=== PATIENT | female | born 1950 | race African-American/Black ===

== ENCOUNTER 2018-04-26 10:12 | Inpatient (IN) | payer BC ==
[~2018-04-26] VITALS: Ht 165.1 cm; Wt 62.1 kg
[2018-04-26] MEDS ORDERED: SODIUM CHLORIDE 0.9% 1,000 ML IV ONE (11:55)
[2018-04-26 12:38] LABS: BASOPHILS % 0.2 % (0.0-2.0); EOSINOPHILS % 1.2 % (0.0-5.0); LYMPHOCYTES % 14.4 % (20.0-50.0); MEAN CORPUSCULAR HEMOGLOBIN 20.9 pg (28.0-32.0); MEAN CORPUSCULAR VOLUME 69.6 fL (81.0-99.0); MEAN PLATELET VOLUME 9.3 fl (7.4-10.4); MONOCYTES % 6.4 % (2.0-8.0); NEUTROPHILS % 77.8 % (40.0-76.0); PLATELET 324 x1000/uL (130-400); RED BLOOD CELL COUNT 1.78 mill/uL (4.2-5.4); RED CELL DISTRIBUTION WIDTH 24.7 % (11.6-14.6)
[2018-04-26 12:43] LABS: CHLORIDE 104 mEq/L (98-107)
[2018-04-26 12:46] LABS: HEMATOCRIT. 12.4 % (36.0-48.0); HEMOGLOBIN. 3.7 g/dL (12.0-16.0)
[2018-04-26 12:47] LABS: INR 1.1; PARTIAL THROMBOPLASTIN TIME 21.5 sec (23.4-31.0); PROTHROMBIN TIME 11.5 sec (9.1-11.1)
[2018-04-26 12:58] LABS: PLATELET ESTIMATE NORMAL
[2018-04-26] MEDS ORDERED: ONDANSETRON HCL 4MG/2ML INJ IV PRN (17:45)
[2018-04-26 19:54] LABS: CLARITY URINE CLOUDY (CLEAR); COLOR URINE YELLOW (YELLOW); KETONES URINE NEGATIVE (NEGATIVE); LEUKOCYTE ESTERASE URINE 2+ (NEGATIVE); NITRITE URINE NEGATIVE (NEGATIVE); OCCULT BLOOD URINE TRACE (NEGATIVE); PROTEIN URINE 2+ (NEGATIVE); SPECIFIC GRAVITY URINE 1.009 (1.005-1.030); UROBILINOGEN URINE 0.2 E.U./dL (0.2-1.0)
[2018-04-26 20:00] VITALS: BP 121/76
[2018-04-26] MEDS ORDERED: HYDROCODONE/ACETAMINOPHEN 5/325MG TABLET PO PRN (21:40)
[2018-04-26] MEDS ORDERED: CLONIDINE 0.1MG TABLET PO PRN (21:40)
[2018-04-26] MEDS ORDERED: ACETAMINOPHEN 325MG TABLET PO PRN (21:40)
[2018-04-26] MEDS ORDERED: MAGNESIUM/ALUMINUM HYDROXIDE/SIMETHICONE 30ML UDC PO PRN (21:40)
[2018-04-26] MEDS ORDERED: NA PHOS,M-B/NA PHOS,DI-BA ENEMA 118ML PR PRN (21:41)
[2018-04-26] MEDS ORDERED: DIPHENHYDRAMINE 50MG/ML VIAL IV PRN (21:41)
[2018-04-26] MEDS ORDERED: IPRATROPIUM/ALBUTEROL 0.5-3(2.5)MG/3ML NEB INH PRN (21:42)
[2018-04-26] MEDS ORDERED: GUAIFENESIN 200MG/10ML SUGAR FREE UDC PO PRN (21:42)
[2018-04-26] MEDS ORDERED: LORAZEPAM 2MG/ML CPJ IV PRN (21:42)
[2018-04-26] MEDS ORDERED: DOCUSATE SODIUM 100MG CAPSULE PO PRN (21:42)
[2018-04-26 22:00] VITALS: BP 121/76
[2018-04-26] MEDS ORDERED: MORPHINE SULFATE 4 MG/ML CPJ (NOT FOR IM USE) IV PRN (22:12)
[2018-04-26] MEDS: SODIUM CHLORIDE 0.45% 1,000 ML IV SCH (23:23)
[2018-04-27] VITALS (10 sets, daily range): BP systolic 100–149; BP diastolic 70–101
[2018-04-27] MEDS ORDERED: XARELTO PO (00:21)
[2018-04-27] MEDS ORDERED: gabapentin PO (00:21)
[2018-04-27] MEDS ORDERED: DEXTROSE 50% WATER 50ML SYRINGE IV PRN (00:45)
[2018-04-27 00:53] LABS: CHLORIDE 107 mEq/L (98-107)
[2018-04-27 01:35] LABS: HEMATOCRIT 18.4 % (36.0-48.0); HEMOGLOBIN 5.8 g/dL (12.0-16.0)
[2018-04-27 06:42] LABS: BASOPHILS % 0.2 % (0.0-2.0); EOSINOPHILS % 2.3 % (0.0-5.0); LYMPHOCYTES % 16.1 % (20.0-50.0); MEAN CORPUSCULAR HEMOGLOBIN 24.4 pg (28.0-32.0); MEAN CORPUSCULAR VOLUME 76.2 fL (81.0-99.0); MEAN PLATELET VOLUME 9.4 fl (7.4-10.4); MONOCYTES % 7.7 % (2.0-8.0); NEUTROPHILS % 73.7 % (40.0-76.0); PLATELET 247 x1000/uL (130-400); RED BLOOD CELL COUNT 2.46 mill/uL (4.2-5.4); RED CELL DISTRIBUTION WIDTH 24.5 % (11.6-14.6)
[2018-04-27] MEDS: BLOOD SUGAR DIAGNOSTIC STRIP TEST SCH ×4 (06:44→21:17)
[2018-04-27] MEDS: INSULIN LISPRO 100 UNITS/ML SUBCUT SCH ×4 (06:45→21:21)
[2018-04-27 07:10] LABS: CHLORIDE 108 mEq/L (98-107)
[2018-04-27 07:39] LABS: T4 FREE 1.29 ng/dL (0.76-1.46)
[2018-04-27 07:44] LABS: HDL CHOLESTEROL 32 mg/dL (40-59)
[2018-04-27 07:51] LABS: LDL CHOLESTEROL 50 mg/dL (5-100)
[2018-04-27 08:39] LABS: HEMATOCRIT. 18.8 % (36.0-48.0)
[2018-04-27] MEDS: DILTIAZEM HCL 60MG TABLET PO SCH ×2 (13:28→21:17)
[2018-04-27 16:23] LABS: HEMATOCRIT 22.2 % (36.0-48.0); HEMOGLOBIN 7.2 g/dL (12.0-16.0); MEAN CORPUSCULAR HEMOGLOBIN 25.3 pg (28.0-32.0); MEAN CORPUSCULAR VOLUME 77.5 fL (81.0-99.0); PLATELET 231 x1000/uL (130-400); RED BLOOD CELL COUNT 2.87 mill/uL (4.2-5.4)
[2018-04-28] VITALS: BP 128/77
[2018-04-28] MEDS: SODIUM CHLORIDE 0.45% 1,000 ML IV SCH (01:11)
[2018-04-28 04:00] VITALS: BP 119/74
[2018-04-28] MEDS: BLOOD SUGAR DIAGNOSTIC STRIP TEST SCH ×3 (06:33→16:46)
[2018-04-28] MEDS: DILTIAZEM HCL 60MG TABLET PO SCH ×2 (06:53→15:58)
[2018-04-28] MEDS: INSULIN LISPRO 100 UNITS/ML SUBCUT SCH ×3 (06:56→16:47)
[2018-04-28 07:19] LABS: BASOPHILS % 0.3 % (0.0-2.0); EOSINOPHILS % 3.4 % (0.0-5.0); HEMATOCRIT. 22.6 % (36.0-48.0); HEMOGLOBIN. 7.4 g/dL (12.0-16.0); LYMPHOCYTES % 12.8 % (20.0-50.0); MEAN CORPUSCULAR HEMOGLOBIN 25.3 pg (28.0-32.0); MEAN CORPUSCULAR VOLUME 77.7 fL (81.0-99.0); MEAN PLATELET VOLUME 9.1 fl (7.4-10.4); MONOCYTES % 7.5 % (2.0-8.0); PLATELET 212 x1000/uL (130-400); RED BLOOD CELL COUNT 2.91 mill/uL (4.2-5.4); RED CELL DISTRIBUTION WIDTH 23.7 % (11.6-14.6)
[2018-04-28 07:31] LABS: CHLORIDE 110 mEq/L (98-107)
[2018-04-28 07:48] LABS: HAPTOGLOBIN 164 mg/dL (30-200)
[2018-04-28 08:00] VITALS: BP 116/70
[2018-04-28 12:00] VITALS: BP 135/81
[2018-04-28 16:00] VITALS: BP 144/87
[2018-04-28 17:28] VITALS: BP 139/85
== END 2018-04-28 18:32 | disposition home or self-care (01) | DRG 812 ==
LOC: ER 10:52 → 5WST 14:09 → ENRESERV 20:20
PROVIDERS: ADMIT Internal Medicine; ATTEND Internal Medicine
PROC: 30233N1 Transfusion of Nonautologous Red Blood Cells into Peripheral Vein, Percutaneous Approach (ICD-10-PCS; principal; 2018-04-26)
DX: D50.9 Iron deficiency anemia, unspecified (principal); K92.2 Gastrointestinal hemorrhage, unspecified; E11.9 Type 2 diabetes mellitus without complications; I10 Essential (primary) hypertension; Z96.649 Presence of unspecified artificial hip joint; H53.8 Other visual disturbances; I48.2 Chronic atrial fibrillation; Z79.01 Long term (current) use of anticoagulants
CPT/HCPCS: 36415; 71045; 80048; 80061; 82270; 82728; 82962; 83010; 83615; 83735; 84439; 84443; 84484; 85014; 85018; 85027; 86850; 86880; 86900; 86920; 93005; 93306; 96360; 96361; 97162; 99285; J1815; J7030; J7040; J7050; P9016